=== PATIENT | female | born 1965 | race Caucasian/White ===

== ENCOUNTER 2018-08-13 10:12 | Emergency (ER) | payer OTHER ==
[2018-08-13 10:28] VITALS: BP 128/91; PULSE 84; TEMP 98.3; BMI 26.7
[2018-08-13] MEDS ORDERED: KETOROLAC TROMETHAMINE 30 MG/1 ML VIAL IM ONE (12:15)
[2018-08-13] MEDS ORDERED: KETOROLAC TROMETHAMINE 30 MG/1 ML VIAL ONE (12:16)
--- NOTE | 2018-08-13 12:18 | PDOC ---
History of Present Illness - General Chief Complaint: Back Pain Stated Complaint: Pain, Acute Time Seen by Provider: 08/13/18 12:02 History Source: Patient Exam Limitations: No Limitations - History of Present Illness Initial Comments: 08/13/18 12:26 Patient is a 52-year-old female past medical history of hypertension, who presents to the emergency department today with left-sided lower back pain and leg pain. Patient states that she was bending over to on the blankmaker when she initially felt the pain. She states that his gotten worse over the past 2 days and it is radiating down her left leg. Denies fevers, chills, trauma, fall , numbness and tingling to the extremity, weakness, saddle anesthesia, bladder/ bowel incontinence. Past History - Travel Traveled outside of the country in the last 30 days: No Close contact w/someone who was outside of country & ill: No - Past Medical History Allergies/Adverse Reactions: Allergies Allergy/AdvReac Type Severity Reaction Status Date / Time No Known Allergies Allergy Verified 08/13/18 10:24 Home Medications: Ambulatory Orders Amlodipine Bes/Olmesartan Med [Yessica 10-40 mg Tablet] 1 each PO DAILY 04/19/16 Aspirin [ASA -] 81 mg PO DAILY 04/19/16 Cyclobenzaprine HCl [Flexeril -] 10 mg PO HS #10 tablet 08/13/18 Methylprednisolone [Medrol Dose Keith] 4 mg PO ASDIR #21 tablet 08/13/18 COPD: No HTN: Yes Hypercholesterolemia: Yes - Immunization History Immunization Up to Date: Yes - Suicide/Smoking/Psychosocial Hx Smoking History: Never smoked Have you smoked in the past 12 months: No Information on smoking cessation initiated: No Hx Alcohol Use: No Drug/Substance Use Hx: No Substance Use Type: None Review of Systems - Review of Systems Able to Perform ROS?: Yes Comments:: 08/13/18 12:14 CONSTITUTIONAL: Absent: fever, chills, diaphoresis, generalized weakness, malaise, loss of appetite GASTROINTESTINAL: Absent: abdominal pain, abdominal distension, nausea, vomiting, diarrhea, constipation, melena, hematochezia GENITOURINARY: Absent: dysuria, frequency, urgency, hesitancy, hematuria, flank pain, genital pain MUSCULOSKELETAL: Present: low back pain, L leg pain Absent: arthralgia, joint swelling SKIN: Absent: rash, itching, pallor NEUROLOGIC: Absent: headache, focal weakness or paresthesias, dizziness, unsteady gait, seizure, mental status changes, bladder or bowel incontinence PSYCHIATRIC: Absent: anxiety, depression, suicidal or homicidal ideation, hallucinations. Is the patient limited Green[place]ic proficient: No *Physical Exam - Vital Signs Last Vital Signs Temp Pulse Resp BP Pulse Ox 98.3 F 84 16 128/91 98 08/13/18 10:25 08/13/18 10:25 08/13/18 10:25 08/13/18 10:25 08/13/18 10:25 - Physical Exam Comments: 08/13/18 12:14 GENERAL: Well developed, well nourished. Awake and alert. No acute distress. HEENT: Normocephalic, atraumatic. PERRLA, EOMI. No conjunctival pallor. Sclera are non- icteric. Moist mucous membranes. Oropharynx is clear. NECK: Supple. Full ROM. No JVD. Carotid pulses 2+ and symmetric, without bruits. No thyromegaly. No lymphadenopathy. MUSCULOSKELETAL TTP of the L paraspinous muscles at the level of S1, with palpable knot present extending into the gluteus santiago. (+) straight leg raise on the L. Normal range of motion at all joints. No bony deformities or tenderness. No CVA tenderness. EXTREMITIES: No cyanosis. No clubbing. No edema. No calf tenderness. SKIN: Warm and dry. Normal capillary refill. No rashes. No jaundice. NEUROLOGICAL: Alert, awake, appropriate. Cranial nerves 2-12 intact. No deficits to light touch and temperature in face, upper extremities and lower extremities. No motor deficits in the in face, upper extremities and lower extremities. Normoreflexic in the upper and lower extremities. Normal speech. Toes are down- going bilaterally. Gait is normal without ataxia. PSYCHIATRIC: Cooperative. Good eye contact. Appropriate mood and affect. Medical Decision Making - Medical Decision Making 08/13/18 12:26 -Pt with TTP of the L paraspinous muscles, at the level of S1 extending into the L gluteus santiaog, with palpable knot consistent with muscle spasm. -(+) straight leg raise on the L consistent with sciatica -No trauma, or fever. No saddle anesthesia or bladder/bowel incontinence. No CVA tenderness. -Pt is neurologically intact on exam with no focal findings. -Toradol given with relief of symptoms -DC home. Ortho follow up given for if symptoms do not resolve. -I discussed the physical exam findings, ancillary test results and final diagnoses with the patient. I answered all of the patient's questions. The patient was satisfied with the care received and felt comfortable with the discharge plan and treatment plan. The Patient agrees to follow up with the primary care physician/specialist within 24-72 hours. Return precautions were given. *DC/Admit/Observation/Transfer Diagnosis at time of Disposition: Low back pain Qualifiers: Chronicity: acute Back pain laterality: left Sciatica presence: with sciatica Sciatica laterality: sciatica of left side Qualified Code(s): M54.42 - Lumbago with sciatica, left side - Discharge Dispostion Disposition: HOME Condition at time of disposition: Stable Decision to Admit order: No - Prescriptions Prescriptions: Cyclobenzaprine HCl [Flexeril -] 10 mg PO HS #10 tablet Methylprednisolone [Medrol Dose Keith] 4 mg PO ASDIR #21 tablet - Referrals Referrals: Thomas Jacobsen [Primary Care Provider] - - Patient Instructions Printed Discharge Instructions: DI for Low Back Pain Additional Instructions: You have low back pain due to a muscle spasm with sciatica. Please take the medrol dose pack as prescribed. You were also prescribed Flexeril. Please take this medication every 8 hours for the first day. Then take the medication before you go to bed. Do not drive after taking this medication as it may make you sleepy If you are having break through pain, please take tylenol 650mg every 6 hours not to exceed 4,000mg a day. . You may use warm compresses on your back to help with her symptoms. Please follow-up with your primary care doctor. If your symptoms do not resolve in 3-5 days, follow-up with orthopedics. A referral has been provided for you. Return to the emergency department if you have worsening back pain, bladder or bowel incontinence, numbness and tingling in her legs, changes in the way you walk, or any new or worsening symptoms. - Post Discharge Activity Forms/Work/School Notes: Back to Work
== END 2018-08-13 12:21 | disposition home or self-care (01) ==
LOC: JERFT 10:12
PROC: 3E0233Z Introduction of Anti-inflammatory into Muscle, Percutaneous Approach (ICD-10-PCS; principal; 2018-08-13)
DX: M54.42 Lumbago with sciatica, left side (principal); I10 Essential (primary) hypertension; E78.00 Pure hypercholesterolemia, unspecified
CPT/HCPCS: 96372; 99281-25

== ENCOUNTER 2024-03-03 09:25 | Emergency (ER) | payer OTHER ==
[2024-03-03 09:29] VITALS: BP 163/78; PULSE 63; RESP 18; TEMP 98.5; BMI 27.4
[2024-03-03] MEDS ORDERED: LIDOCAINE 4% PATCH TP ONE (09:56)
[2024-03-03] MEDS ORDERED: ACETAMINOPHEN 500 MG TABLET (FP) ONE (09:57)
[2024-03-03] MEDS ORDERED: IBUPROFEN 400 MG TABLET (FP) PO ONE (09:57)
[2024-03-03] MEDS ORDERED: CYCLOBENZAPRINE HCL 10 MG TABLET (FP) ONE (09:57)
[2024-03-03] MEDS: IBUPROFEN 400 MG TABLET (FP) PO ONE (10:04)
[2024-03-03] MEDS: LIDOCAINE 4% PATCH TP ONE (10:04)
[2024-03-03] MEDS: CYCLOBENZAPRINE HCL 10 MG TABLET (FP) PO ONE (10:04)
[2024-03-03] MEDS: ACETAMINOPHEN 500 MG TABLET (FP) PO ONE (10:05)
[2024-03-03] MEDS ORDERED: LIDOCAINE PATCH REMOVAL MC SCH (22:00)
== END 2024-03-03 10:27 | disposition home or self-care (01) ==
LOC: JERFT 09:25 → JER 09:25 → JERFT 10:27
DX: S46.912A Strain of unspecified muscle, fascia and tendon at shoulder and upper arm level, left arm, initial encounter (principal); W01.0XXA Fall on same level from slipping, tripping and stumbling without subsequent striking against object, initial encounter
CPT/HCPCS: 73030-TC-LT-FY; 99283-25

== ENCOUNTER 2024-03-19 10:46 | Emergency (ER) | payer OTHER ==
[2024-03-19 10:57] VITALS: BP 119/56; PULSE 56; RESP 16; TEMP 97.9; BMI 31.0
[2024-03-19] MEDS ORDERED: LIDOCAINE 4% PATCH TP ONE (11:38)
[2024-03-19] MEDS ORDERED: KETOROLAC TROMETHAMINE 30 MG/1 ML VIAL ONE (11:38)
[2024-03-19] MEDS: LIDOCAINE 5% TOPICAL PATCH TP ONE (11:42)
[2024-03-19] MEDS: KETOROLAC TROMETHAMINE 30 MG/1 ML VIAL IM ONE (11:42)
[2024-03-19] MEDS: LIDOCAINE 4% PATCH TP ONE (11:43)
[2024-03-19] MEDS ORDERED: LIDOCAINE PATCH REMOVAL MC SCH ×2 (22:00)
== END 2024-03-19 12:56 | disposition home or self-care (01) ==
LOC: JERFT 10:46
PROC: 3E0233Z Introduction of Anti-inflammatory into Muscle, Percutaneous Approach (ICD-10-PCS; principal; 2024-03-19)
DX: M75.32 Calcific tendinitis of left shoulder (principal); M25.512 Pain in left shoulder
CPT/HCPCS: 73030-TC-LT-FY; 96372; 99284-25